=== PATIENT | male | born 1980 ===

== ENCOUNTER 2025-02-11 01:22 | Inpatient (IN) | payer BC ==
[2025-02-11] VITALS (33 sets, daily range): BP systolic 108–160; BP diastolic 73–137
[~2025-02-11] VITALS: Ht 182.9 cm; Wt 140.6 kg
[2025-02-11 03:13] LABS: BASOPHILS ABSOLUTE AUTO 0.05 K/mm3 (0.00-0.23); BASOPHILS PERCENT AUTO 1 % (0-2); EOSINOPHILS ABSOLUTE AUTO 0.14 K/mm3 (0.00-0.68); EOSINOPHILS PERCENT AUTO 3 % (0-6); Hematocrit 39.5 % (37.0-53.0); Hemoglobin 13.5 g/dL (13.5-17.5); IMMATURE GRAN ABSOLUTE AUTO 0.01 K/mm3 (0.00-0.10); IMMATURE GRAN PERCENT AUTO 0 % (0-1); LYMPHOCYTES ABSOLUTE AUTO 0.96 K/mm3 (0.84-5.20); LYMPHOCYTES PERCENT AUTO 22 % (21-46); MONOCYTES ABSOLUTE AUTO 0.42 K/mm3 (0.16-1.47); MONOCYTES PERCENT AUTO 10 % (4-13); Mean Corpuscular HGB Conc 34.2 g/dL (31.5-36.5); Mean Corpuscular Volume 100 fL (80-100); NEUTROPHILS ABSOLUTE AUTO 2.81 K/mm3 (1.96-9.15); NEUTROPHILS PERCENT AUTO 64 % (41-73); NRBC ABSOLUTE 0.00 K/mm3 (0.00-0.02); NRBC Auto 0.0 /100 WBC (0.0-0.2); Platelet Count 76 K/mm3 (150-400); RDW Coefficient Variation 13.8 % (11.7-14.2); RDW Standard Deviation 51.8 fL (35.1-46.3)
[2025-02-11 03:34] LABS: Alanine Aminotransfer (ALT/SGP 37 U/L (12-78); Albumin, Blood 2.8 g/dL (3.4-5.0); Albumin/Globulin Ratio 0.6 (0.8-1.8); Anion Gap 10 mmol/L (3-11); Aspartate Aminotrans (AST/SGOT 111 U/L (12-37); Bilirubin, Total 6.7 mg/dL (0.1-1.0); Blood Urea Nitrogen 14 mg/dL (8-24); CO2, Blood 28 mmol/L (21-32); Calcium, Blood 8.8 mg/dL (8.5-10.1); Chloride, Blood 101 mmol/L (98-108); Creatinine, Blood 0.80 mg/dL (0.60-1.20); Ethanol (Alcohol), Blood, Med <3 mg/dL; Globulin, Blood 4.6 g/dL (2.2-4.0); Glucose, Blood 134 mg/dL (70-99); Magnesium, Blood 1.3 mg/dL (1.6-2.4); Phosphorus, Blood 2.8 mg/dL (2.5-4.9); Potassium, Blood 3.6 mmol/L (3.5-5.5); Sodium, Blood 135 mmol/L (136-145); Total Protein, Blood 7.4 g/dL (6.4-8.2)
[2025-02-11] MEDS ORDERED: Diazepam 5 MG / ML 2ML SYR IV ONE (03:40)
[2025-02-11] MEDS ORDERED: Magnesium Sulf 2 GM/Water 50ML 50 ML IV ONE (06:00)
[2025-02-11 06:17] LABS: Bilirubin, Direct 2.2 mg/dL (0.0-0.3); Bilirubin, Indirect 4.5 mg/dL (0.1-0.7)
[2025-02-11 06:22] LABS: Acetaminophen, Random <2.0 ug/mL (10.0-30.0)
[2025-02-11 06:39] LABS: Prothrombin Time Results 14.9 Sec (9.7-11.5)
[2025-02-11] MEDS ORDERED: NS 250 ML IV PRN (08:30)
--- NOTE | 2025-02-11 11:00 | NUR ---
ASSUMPTION OF CARE/ADMISSION TO ICU PT TO ICU AT APPROXIMATELY 0724 BY MADDI SOTO. PT ACCOMPANIED BY SECURITY. PT TRANSFERED TO ICU BED VIA SLIDER SHEET. PT BRIEFLY AWAKENS WITH PHYSICAL STIMULATION, MUMBLES INCOHERENTLY THEN FALLS BACK ASLEEP. ON ASSESSMENT PT OPENS EYES SPONTANEOUSLY, PT ORIENTED X4, ABLE TO STATE NAME, AND YEAR, UNSURE OF LOCATION. PT FOLLOWS DIRECTION WHEN PROMPTED, ABLE TO MAKE HIS NEEDS KNOWN. PT TREMULOUS, CIWA 5. PT DENIES PAIN AT TIME OF ASSESSMENT. HR 70-80'S SINUS, MAP >65. PT PLACED ON 4LPM VIA NC WHILE SLEEPING, OXYGEN SATURATION >94%. ABDOMEN ROUND AND SOFT, BOWEL TONES HYPOACTIVE. PT DENIES N/V. PT USES URINAL TO VOID. PIV IN PLACE TO LAC, POWERGLIDE PLACED TO CECILIA. BED IN LOWEST POSITON, CALL LIGHT WITHIN REACH, CARE CONTINUES.
[2025-02-11] MEDS ORDERED: Diazepam 5 MG / ML 2ML SYR IV PRN ×2 (11:10→11:15)
[2025-02-11] MEDS ORDERED: NICOTINE POLACRILEX 4 MG LOZENGE PO PRN (16:10)
--- NOTE | 2025-02-11 17:24 | NUR ---
SHIFT SUMMARY NO ACUTE CHANGES THIS SHIFT. PT UP IN RECLINER, ALERT AND ORIENTED X4. PT ANSWERS QUESTIONS APPROPRIATELY, FOLLOWS DIRECTION WHEN PROMPTED IS ABLE TO MAKE HIS NEEDS KNOWN. PT MOVES EXTREMITIES EQUALLY BILATERALLY, AMBULATES IN THE ROOM WITH MINIMAL ASSISTANCE. PT TREMULOUS. CIWA 5 THIS SHIFT, MEDICATED WITH LIBRIUM PER EMAR. HR 60-80'S SINUS, MAP >65. PT ON RA WHILE AWAKE, 4LPM VIA NC WHILE SLEEPING, OXYGEN SATURAITON >94%. ABDOMEN SOFT, BOWEL TONES ACTIVE THROUGHOUT, PT DENIES N/V. PT USES URINAL TO VOID. PIV IN PLACE TO LAC, POWERGLIDE IN PLACE TO CECILIA SL. CALL LIGHT WITHIN REACH, CARE CONTINUES.
--- NOTE | 2025-02-11 17:28 | NUR ---
PT BELONGINGS PT BELONGINGS BROUGHT TO ICU FROM [facility] BY [facility] RN. BELONGINGS IN ROOM WITH PT.
--- NOTE | 2025-02-11 20:24 | NUR ---
ASSUMPTION OF CARE CARE OF PT ASSUMED FOLLOWING BEDSIDE SHIFT REPORT FROM DAY RN. PT LYING IN BED IN NO APPARENT DISTRESS, ALERT AND ORIENTED, CIWA 11 FOR TREMORS, ANXIETY, VISUAL HALLUCINATIONS AND MILD DIAPHORESIS. PT GIVEN LIBRIUM. MAEW. PT TRANSFERRED TO BED WITH SBA. CHAIR ALARM IS ON. PT GIVEN NICONTINE LOZENGE. SINUS RHYTHM IN THE 80'S AND STABLE BP. RESPIRATIONS REGULAR, SYMMETRIC EXPANSION AND DIM IN BASES. DENIES CHEST PAIN/PRESSURE, SOB. ABDOMEN DISTENDED AND NON TENDER. DENIES N/V. WILL REVIEW AND CONTINUE PLAN OF CARE.
--- NOTE | 2025-02-11 21:39 | NUR ---
UPDATE: PT STANDS UP FROM CHAIR SAYING HE WANTS TO LEAVE. PT IS ALERT BUT NOT ORIENTED, OTHER THAN SELF. PT ASKS IF HE CAN LEAVE IF HE GETS A RIDE. PT TRIED CALLING A FRIEND, WILFRIDO, BUT THERE WAS NO ANSWER. PT PARENTS LIVE IN [place]. PROVIDER CALLED AND IS ON THE WAY TO SPEAK TO PT ABOUT POTENTIAL AMA. PT IS CURRENTLY SITTING IN CHAIR WITH TWO RN'S IN ROOM.
[2025-02-12] VITALS (20 sets, daily range): BP systolic 103–150; BP diastolic 68–109
[2025-02-12 06:14] LABS: BASOPHILS ABSOLUTE AUTO 0.04 K/mm3 (0.00-0.23); BASOPHILS PERCENT AUTO 1 % (0-2); EOSINOPHILS ABSOLUTE AUTO 0.17 K/mm3 (0.00-0.68); EOSINOPHILS PERCENT AUTO 4 % (0-6); Hematocrit 41.8 % (37.0-53.0); Hemoglobin 14.1 g/dL (13.5-17.5); IMMATURE GRAN ABSOLUTE AUTO 0.02 K/mm3 (0.00-0.10); IMMATURE GRAN PERCENT AUTO 1 % (0-1); LYMPHOCYTES ABSOLUTE AUTO 0.85 K/mm3 (0.84-5.20); LYMPHOCYTES PERCENT AUTO 20 % (21-46); MONOCYTES ABSOLUTE AUTO 0.43 K/mm3 (0.16-1.47); MONOCYTES PERCENT AUTO 10 % (4-13); Mean Corpuscular HGB Conc 33.7 g/dL (31.5-36.5); Mean Corpuscular Volume 101 fL (80-100); NEUTROPHILS ABSOLUTE AUTO 2.83 K/mm3 (1.96-9.15); NEUTROPHILS PERCENT AUTO 65 % (41-73); NRBC ABSOLUTE 0.00 K/mm3 (0.00-0.02); NRBC Auto 0.0 /100 WBC (0.0-0.2); Platelet Count 67 K/mm3 (150-400); RDW Coefficient Variation 13.8 % (11.7-14.2); RDW Standard Deviation 51.3 fL (35.1-46.3)
--- NOTE | 2025-02-12 06:19 | NUR ---
SHIFT SUMMARY PT LYING IN CHAIR SLEEPING, SEDATED ON PRECEDEX 1.0, DIFFICULT TO AROUSE. DURING SHIFT ETOH WITHDRAWALS ESCALATED QUICKLY IN SPITE OF LIBRIUM AND THEN VALIUM, AND THE PRECEDEX DRIP WAS STARTED AROUND 2300 LAST NIGHT. PT FINALLY WENT TO SLEEP AROUND 0100. CIWA SCORES BEFORE SLEEPING WERE 17, FOR TREMORS, VISUAL HALLUCINATIONS, MILD NAUSEA, ANXIETY, AGITATION AND DISORIENTATION. AT ONE POINT, BEFORE THE PRECEDEX WAS STARTED, PT WANTED TO LEAVE AMA AND DR KOHLER CAME TO SPEAK WITH PT AND CONVINCED HIM THAT IT WOULD BE IN HIS BEST INTEREST TO STAY. PT STAYED IN SINUS RHYTHM 60-90 BPM AND BP REMAINED STABLE. NO CHEST PAIN/PRESSURE OR SOB WHEN AWAKE. PT WAS STARTED ON 6L NC FOR APPARENT SLEEP APNEA. LUNGS CLEAR AND DIMINISHED. MILD NAUSEA DURING SHIFT BUT NO VOMITING. NO BM. PT VOIDED 40ML URINE BEFORE SLEEPING. HE WAS BLADDER SCANNED JUST BEFORE END OF SHIFT AND 492ML WAS THE RESULT. PT HAS NO H/O BPH OR RETENTION. ONLY INPUT WAS 300ML OF PRECEDEX AND A FEW SIPS FOR MEDS. BEDSIDE SHIFT REPORT GIVEN TO ONCOMING RN.
[2025-02-12 06:37] LABS: Alanine Aminotransfer (ALT/SGP 36.0 U/L (12-78); Albumin, Blood 3.0 g/dL (3.4-5.0); Albumin/Globulin Ratio 0.6 (0.8-1.8); Anion Gap 8.0 mmol/L (3-11); Aspartate Aminotrans (AST/SGOT 100.0 U/L (12-37); Bilirubin, Total 7.5 mg/dL (0.1-1.0); Blood Urea Nitrogen 15.0 mg/dL (8-24); CO2, Blood 30.0 mmol/L (21-32); Calcium, Blood 8.8 mg/dL (8.5-10.1); Chloride, Blood 100.0 mmol/L (98-108); Creatinine, Blood 0.55 mg/dL (0.60-1.20); Globulin, Blood 5.2 g/dL (2.2-4.0); Glucose, Blood 175.0 mg/dL (70-99); Potassium, Blood 4.1 mmol/L (3.5-5.5); Sodium, Blood 134.0 mmol/L (136-145); Total Protein, Blood 8.2 g/dL (6.4-8.2)
--- NOTE | 2025-02-12 10:09 | NUR ---
ASSUMPTION OF CARE ASSUMED CARE OF PATIENT AT [facility]. PT RESTING IN RECLINER, PRECEDEX INFUSING AT 1MCG/KG/HR. PT RASS -3, PRECEDEX TITRATED DOWN OT 0.7MCG/KG/HR. PT BRIEFLY WOKE UP TO PHYSICAL STIMULATION, FOLLOWED SOME COMMANDS SUCH WIGGLING TOES AND SQUEEZING HANDS, PT ALSO ABLE TO DRINK SOME WATER. PT QUICKLY FELL BACK ASLEEP. PT VERY DIFFICULT TO ARROUSE. DR. VALENCIA AT THE BEDSIDE, PT NOT AROUSABLE, PRECEDEX PLACED ON SB. HR 60'S SINUS, MAP >65. PT ON 6LPM VIA NC, OXYGEN SATURATION >95%. ABDOMEN ROUND AND FIRM, BOWEL TONES HYPOACTIVE. POWERGLIDE IN PLACE TO CECILIA, PIV IN PLACE TO LEFT HAND. CALL LIGHT WITHIN REACH, CARE CONTINUES.
[2025-02-12] MEDS ORDERED: Lidocaine 2% Jelly Uro-Jet UR ONE ×2 (11:00→12:50)
[2025-02-12] MEDS ORDERED: NS 1,000 ML IV SCH (13:40)
[2025-02-12] MEDS ORDERED: Enoxaparin 40 MG/0.4 ML SYR SC SCH (14:00)
[2025-02-12 14:12] LABS: U Amphetamine Screen Not Detected; U Barbituate Screen DETECTED; U Benzodiazapine Screen DETECTED; U Buprenorphine Screen Not Detected; U Cannabinoids Screen Not Detected; U Cocaine Screen Not Detected; U Methadone Screen Not Detected; U Methamphetamine Screen Not Detected; U Opiates Screen Not Detected; U Oxycodone Screen Not Detected; U Phencyclidine Screen Not Detected
--- NOTE | 2025-02-12 17:25 | NUR ---
SHIFT SUMMARY PT SLEEPING BUT AROUSABLE TO VERBAL STIMULI. PT ANSWERS QUESTIONS APPROPRIATELY, FOLLOWS DIRECTION WHEN PROMPTED AND IS ABLE TO MAKE HIS NEEDS KNOWN. PT CONFUSED AT TIMES, CIWA 8-13 THIS SHIFT, MEDICATED PER EMAR. PT MOVES EXTREMITIES EQUALLY BILATERALLY. HR 60'S SINUS, MAP >65. PT ON 4LPM VIA NC, OXYGEN SATURATION >94%. ABDOMEN FIRM, BOWEL TONES HYPOACTIVE. PT STRAIGHT CATH'D THIS SHIFT DUE TO RETENTION, PROVIDER AWARE. POWERGLIDE IN PLACE TO CECILIA, NS INFUSING AT 75MLS/HR. PIV IN PLACE TO LEFT HAND SL. BED IN LOWEST POSITION, CALL LIGHT WITHIN REACH, CARE CONTINUES.
--- NOTE | 2025-02-12 20:27 | NUR ---
ASSUMPTION OF CARE CARE OF PT ASSUMED FOLLOWING BEDSIDE SHIFT REPORT FROM DAY RN. PT SITTING UP IN BED, ALERT AND ORIENTED TO ALL. CIWA 5. PT MEDICATED WITH 50 LIBRIUM. PT UP TO TOILET WITH 2 SBA WITH SOME DIFFICULTY- UNSTEADY ON FEET. AFEBRILE. SINUS RHYTHM WITH STABLE BP. LUNGS CLEAR AND 4L NC PRODCUCING SAT > 92%. ABDOMEN DISTENDED AND FIRM. BM DURING ASSESSMENT (PT GIVEN LACTULOSE EARLIER TODAY). NO CHEST PAIN/PRESSURE, SOB, N/V, THOUGH PT DOES HAVE DECREASED APPETITE. WILL REVIEW AND CONTINUE PLAN OF CARE.
[2025-02-13] VITALS (9 sets, daily range): BP systolic 105–170; BP diastolic 81–134
--- NOTE | 2025-02-13 00:54 | NUR ---
UPDATE: PT WITHDRAWALS SYMPTOMS HAVE NOT ESCALATED LIKE LAST NIGHT. CIWA SCORES REMAIN LESS THAN 10. PT GIVEN 2 X 50MG LIBRIUM. PT BELIEVES WORST IS BEHIND HIM. PT STARTS INQUIRING ABOUT RESEDENTIAL TREATMENT FACILITIES. HE SAYS HIS INSURANCE ([facility]) REFUSES TO COVER ANY SUCH PLACE. PT C/O GAS LIKE AB PAIN. TREATED SUCCESSFULLY WITH SPRITE AND A SNACK.
[2025-02-13 04:40] LABS: BASOPHILS ABSOLUTE AUTO 0.06 K/mm3 (0.00-0.23); BASOPHILS PERCENT AUTO 1 % (0-2); EOSINOPHILS ABSOLUTE AUTO 0.11 K/mm3 (0.00-0.68); EOSINOPHILS PERCENT AUTO 3 % (0-6); Hematocrit 40.8 % (37.0-53.0); Hemoglobin 13.8 g/dL (13.5-17.5); IMMATURE GRAN ABSOLUTE AUTO 0.01 K/mm3 (0.00-0.10); IMMATURE GRAN PERCENT AUTO 0 % (0-1); LYMPHOCYTES ABSOLUTE AUTO 0.76 K/mm3 (0.84-5.20); LYMPHOCYTES PERCENT AUTO 18 % (21-46); MONOCYTES ABSOLUTE AUTO 0.50 K/mm3 (0.16-1.47); MONOCYTES PERCENT AUTO 12 % (4-13); Mean Corpuscular HGB Conc 33.8 g/dL (31.5-36.5); Mean Corpuscular Volume 101 fL (80-100); NEUTROPHILS ABSOLUTE AUTO 2.80 K/mm3 (1.96-9.15); NEUTROPHILS PERCENT AUTO 66 % (41-73); NRBC ABSOLUTE 0.00 K/mm3 (0.00-0.02); NRBC Auto 0.0 /100 WBC (0.0-0.2); Platelet Count 75 K/mm3 (150-400); RDW Coefficient Variation 13.5 % (11.7-14.2); RDW Standard Deviation 50.3 fL (35.1-46.3)
[2025-02-13 05:07] LABS: Alanine Aminotransfer (ALT/SGP 34.0 U/L (12-78); Albumin, Blood 2.7 g/dL (3.4-5.0); Albumin/Globulin Ratio 0.6 (0.8-1.8); Anion Gap 7.0 mmol/L (3-11); Aspartate Aminotrans (AST/SGOT 94.0 U/L (12-37); Bilirubin, Total 7.1 mg/dL (0.1-1.0); Blood Urea Nitrogen 14.0 mg/dL (8-24); CO2, Blood 31.0 mmol/L (21-32); Calcium, Blood 8.4 mg/dL (8.5-10.1); Chloride, Blood 99.0 mmol/L (98-108); Creatinine, Blood 0.69 mg/dL (0.60-1.20); Globulin, Blood 4.9 g/dL (2.2-4.0); Glucose, Blood 117.0 mg/dL (70-99); Potassium, Blood 3.7 mmol/L (3.5-5.5); Sodium, Blood 133.0 mmol/L (136-145); Total Protein, Blood 7.6 g/dL (6.4-8.2)
--- NOTE | 2025-02-13 07:36 | NUR ---
SHIFT SUMMARY PT LYING IN BED ALERT. PT WAS ORIENTED TO ALL MOST OF SHIFT. GIVEN 100MG OF LIBRIUM AND 5MG OF VALIUM FOR CIWAS OF 5-11. AT END OF SHIFT, PT INTRODUCED ME TO PARENTS, BUT NO ONE ELSE WAS IN THE ROOM. PT IS MOTIVATED TO QUIT DRINKING; WANTS TO DO IT FOR HIS CHILDREN AND HIS HEALTH. PT IN SINUS RHYTM WITH STABLE BP. NO CHEST PAIN/PRESSURE. NO SOB.RA WHEN AWAKE AND 6L NC WHEN SLEEPING FOR APPARENT SLEEP APNEA. I BM DURING SHIFT. I UNMEASURED VOID. PT HAS NOTED URINE HAS BECOME MUCH DARKER OF LATE. NS AT 75ML/HR. BEDSIDE SHIFT REPORT GIVEN TO ONCOMING DAY RN
[2025-02-14] VITALS (17 sets, daily range): BP systolic 110–170; BP diastolic 54–135
[2025-02-14 04:24] LABS: BASOPHILS ABSOLUTE AUTO 0.05 K/mm3 (0.00-0.23); BASOPHILS PERCENT AUTO 1 % (0-2); EOSINOPHILS ABSOLUTE AUTO 0.13 K/mm3 (0.00-0.68); EOSINOPHILS PERCENT AUTO 3 % (0-6); Hematocrit 37.8 % (37.0-53.0); Hemoglobin 12.8 g/dL (13.5-17.5); IMMATURE GRAN ABSOLUTE AUTO 0.02 K/mm3 (0.00-0.10); IMMATURE GRAN PERCENT AUTO 1 % (0-1); LYMPHOCYTES ABSOLUTE AUTO 0.90 K/mm3 (0.84-5.20); LYMPHOCYTES PERCENT AUTO 22 % (21-46); MONOCYTES ABSOLUTE AUTO 0.56 K/mm3 (0.16-1.47); MONOCYTES PERCENT AUTO 14 % (4-13); Mean Corpuscular HGB Conc 33.9 g/dL (31.5-36.5); Mean Corpuscular Volume 102 fL (80-100); NEUTROPHILS ABSOLUTE AUTO 2.49 K/mm3 (1.96-9.15); NEUTROPHILS PERCENT AUTO 60 % (41-73); NRBC ABSOLUTE 0.00 K/mm3 (0.00-0.02); NRBC Auto 0.0 /100 WBC (0.0-0.2); Platelet Count 89 K/mm3 (150-400); RDW Coefficient Variation 14.1 % (11.7-14.2); RDW Standard Deviation 53.1 fL (35.1-46.3)
[2025-02-14 04:43] LABS: Alanine Aminotransfer (ALT/SGP 31.0 U/L (12-78); Albumin, Blood 2.4 g/dL (3.4-5.0); Albumin/Globulin Ratio 0.5 (0.8-1.8); Anion Gap 6.0 mmol/L (3-11); Aspartate Aminotrans (AST/SGOT 84.0 U/L (12-37); Bilirubin, Total 6.8 mg/dL (0.1-1.0); Blood Urea Nitrogen 10.0 mg/dL (8-24); CO2, Blood 29.0 mmol/L (21-32); Calcium, Blood 8.0 mg/dL (8.5-10.1); Chloride, Blood 104.0 mmol/L (98-108); Creatinine, Blood 0.58 mg/dL (0.60-1.20); Globulin, Blood 4.7 g/dL (2.2-4.0); Glucose, Blood 138.0 mg/dL (70-99); Potassium, Blood 3.3 mmol/L (3.5-5.5); Sodium, Blood 136.0 mmol/L (136-145); Total Protein, Blood 7.1 g/dL (6.4-8.2)
--- NOTE | 2025-02-14 05:01 | NUR ---
SHIFT SUMMARY PT WAS RESTARTED ON PRECEDEX THIS SHIFT R/T INCREASING CIWA SCORES. PT STARTED OFF AT AN 8 AND WAS MEDICATED W/ LIBRIUM AND VALIUM W/ NO POSITIVE CHANGE. PT BEGAN HAVING AUDITORY AND VISUAL HALLUCINATIONS, BECAME VERY ANXIOUS, STARTED PULLING AT CORDS. PRECEDEX IS INFUSING AT 0.6 MCG/KG/HR WITH A RASS OF -2. AWAKENS TO VERBAL STIMULI. ON 4L NC WHILE ASLEEP, HUMIDIFIER HOOKED UP R/T SOME BLEEDING IN THE NARES. BREATH SOUNDS CLEAR AND DIM IN THE BASES. HR 70'S, BP STABLE. PUREWICK PLACED WHEN PRECEDEX WAS STARTED. NO BM THIS SHIFT. NO OTHER ACUTE EVENTS.
[2025-02-14 11:04] LABS: HEPATITIS A ANTIBODY, IGM Negative (Negative); HEPATITIS C AB CIA INTERP Negative (Negative); HEPATITIS C ANTIBODY CIA INDEX 0.05 IV
[2025-02-15] VITALS (12 sets, daily range): BP systolic 118–174; BP diastolic 67–108
[2025-02-15 03:33] LABS: Alanine Aminotransfer (ALT/SGP 34.0 U/L (12-78); Albumin, Blood 2.5 g/dL (3.4-5.0); Albumin/Globulin Ratio 0.5 (0.8-1.8); Anion Gap 7.0 mmol/L (3-11); Aspartate Aminotrans (AST/SGOT 88.0 U/L (12-37); Bilirubin, Total 6.9 mg/dL (0.1-1.0); Blood Urea Nitrogen 7.0 mg/dL (8-24); CO2, Blood 28.0 mmol/L (21-32); Calcium, Blood 8.1 mg/dL (8.5-10.1); Chloride, Blood 105.0 mmol/L (98-108); Creatinine, Blood 0.58 mg/dL (0.60-1.20); Globulin, Blood 4.7 g/dL (2.2-4.0); Glucose, Blood 112.0 mg/dL (70-99); Potassium, Blood 3.6 mmol/L (3.5-5.5); Sodium, Blood 136.0 mmol/L (136-145); Total Protein, Blood 7.2 g/dL (6.4-8.2)
--- NOTE | 2025-02-15 05:04 | NUR ---
SHIFT SUMMARY PT A/OX4, ABLE TO MAKE NEEDS KNOWN, USES CALL LIGHT APPROPRIATLY. 0400 CIWA WAS 4, SLIGHTLY DIAPHORETIC AND UNSURE OF EXACT DATE. NOT TREMULOUS. PT ON 4L NC, SATS > 92%. HR 90-100'S, BP STABLE. PT HAD ONE LARGE BM THIS SHIFT, AND TWO VOIDS- ONE UNMEASURED. PT SOMETIMES NEEDS TO BE ASKED OR ENCOURAGED TO URINATE. HE IS MORE STEADY ON HIS FEET T/O SHIFT, ABLE TO USE FWW AND SBA TO TOILET FROM BED. PT DID ATTEMPT OOB ONCE WITHOUT CALLING, BED ALARM ON WITH CALL LIGHT IN REACH. NO FURTHER ISSUES AFTER ENCOURAGEMENT PROVIDED TO USE CALL LIGHT. PT TOLERATING PO INTAKE. PT TOOK NAPS T/O THE NIGHT, STATES THIS IS NORMAL FOR HIM. NS INFUSING TO PG AT 75ML/H. PT WAS VERY PLEASANT T/O THE NIGHT, JOKING WITH STAFF, ETC. NO ACUTE EVENTS.
--- NOTE | 2025-02-15 10:15 | NUR ---
AM NOTE: THIS RN ASSUMED CARE OF PT AT APPROX 0700, REPORT FROM NOC RN. PT A/OX4, ABLE TO COMMUNICATE NEEDS W/ STAFF. CIWA 4. VSS. HR 100'S, SINUS TACH ON MONITOR. SBP UP TO 170'S, PT REPORTS FEELING "VERY ANGRY" DUE TO SOME MALFUNCTIONS WITH HIS CELL PHONE. DENIES CHEST PAIN/PRESSURE. SPO2 >90% ON ROOM AIR, RESPIRATIONS EVEN & UNLABORED. AFEBRILE. UP TO TOILET FOR BM W/ NURSE ASSIST. TREMULOUS, ABLE TO USE FWW FOR AMBULATION. ORDERS RECEIVED FOR PT EVAL TODAY. PT DENIES PAIN. MEDICAL STATUS THIS AM, DISCONTINUE TELEMETRY. PLANS TO TRANSFER TO ROOM [facility] SHORTLY.
--- NOTE | 2025-02-15 17:24 | NUR ---
SUMMARY PT TRANSFERRED FROM ICU 10 HOME NICOTINE LOZENGES SENT UP WITH PATIENT AND PALCED IN DRAWER. CIWA ASSESSED AND WNL. PT HAS NS RUNNING IN POWERGLIDE TO CECILIA. PT CALM AND COOPERATIVE, WITHDRAWN. B/P IN ICU WAS ELEVATED IN 170'S SYSTOLICALLY WITH NO RECENT RECHECK. PT BLOOD PRESSURE TAKEN NOT LONG AFTER ARRIVAL TO UNIT AND WAS SYSTOLICALLY IN THE 150'S AND DIASTOLIC IN THE LOW 100'S WITH HEART RATE IN LOW 100'S DR. VALENCIA NOTIFIED AND SHE ORDERED 6.25 MG CARVEDILOL TO START AT THAT TIME THEN BID. PT SEEMS CONFUSED UPON WAKING FROM NAP THIS EVENING. CIWA RE-ASSESSED AND SCORE OF 8. 25 MG LIBRIUM GIVEN. PT HAD BITTEN THROUGH IV TUBING TO "FREE HIMSELF" TO SIT AT EOB IN ORDER TO USE BATHROOM. IV TUBING AND BAG REPLACED. PT WAS OFFERED ASSISTANCE TO BATHROOM BUT DENIED HAVING TO GO ANYMORE. PT IS NOW RESTING IN BED, EYES CLOSED, RESPIRATIONS EVEN AND UNLABORED. WITH BED ALARM ON FOR FORGETFULNESS/IMPULSIVITY. PT WAS UP IN CHAIR TODAY BRIEFLY WITH CAIR ALARM.
[2025-02-16 02:50] VITALS: BP 169/97
[2025-02-16 03:41] VITALS: BP 166/98
--- NOTE | 2025-02-16 04:13 | NUR ---
SHIFT SUMMARY PATIENT IS ALERT AND ORIENTED X2. PATIENT HAS HAD NO ACUTE EVENTS THIS SHIFT. VITAL SIGNS REVIEWED. PATIENTS CIWA RANGING FROM 8-12. PATIENT MEDICATED ACCORDINGLY. PATIENT BP HAS BEEN ELEVATED. PATIENT CONFUSED AND TRYING TO GET OUT OF BED, EASILY REDIRECTABLE. PATIENT HAS NO COMPLAINTS OF PAIN, NAUSEA, SOB OR VOMITTING. BED IN LOCKED AND LOWEST POSITION. BED ALARM IS ON. CALL LIGHT IN PLACE.
[2025-02-16 07:09] VITALS: BP 164/99
[2025-02-16 07:53] LABS: BASOPHILS ABSOLUTE AUTO 0.07 K/mm3 (0.00-0.23); BASOPHILS PERCENT AUTO 1 % (0-2); EOSINOPHILS ABSOLUTE AUTO 0.13 K/mm3 (0.00-0.68); EOSINOPHILS PERCENT AUTO 3 % (0-6); Hematocrit 40.9 % (37.0-53.0); Hemoglobin 13.8 g/dL (13.5-17.5); IMMATURE GRAN ABSOLUTE AUTO 0.03 K/mm3 (0.00-0.10); IMMATURE GRAN PERCENT AUTO 1 % (0-1); LYMPHOCYTES ABSOLUTE AUTO 0.78 K/mm3 (0.84-5.20); LYMPHOCYTES PERCENT AUTO 15 % (21-46); MONOCYTES ABSOLUTE AUTO 0.66 K/mm3 (0.16-1.47); MONOCYTES PERCENT AUTO 13 % (4-13); Mean Corpuscular HGB Conc 33.7 g/dL (31.5-36.5); Mean Corpuscular Volume 102 fL (80-100); NEUTROPHILS ABSOLUTE AUTO 3.59 K/mm3 (1.96-9.15); NEUTROPHILS PERCENT AUTO 68 % (41-73); NRBC ABSOLUTE 0.00 K/mm3 (0.00-0.02); NRBC Auto 0.0 /100 WBC (0.0-0.2); Platelet Count 115 K/mm3 (150-400); RDW Coefficient Variation 13.8 % (11.7-14.2); RDW Standard Deviation 52.3 fL (35.1-46.3)
[2025-02-16 08:09] LABS: Alanine Aminotransfer (ALT/SGP 34.0 U/L (12-78); Albumin, Blood 2.7 g/dL (3.4-5.0); Albumin/Globulin Ratio 0.5 (0.8-1.8); Anion Gap 9.0 mmol/L (3-11); Aspartate Aminotrans (AST/SGOT 81.0 U/L (12-37); Bilirubin, Total 7.3 mg/dL (0.1-1.0); Blood Urea Nitrogen 6.0 mg/dL (8-24); CO2, Blood 29.0 mmol/L (21-32); Calcium, Blood 8.5 mg/dL (8.5-10.1); Chloride, Blood 103.0 mmol/L (98-108); Creatinine, Blood 0.47 mg/dL (0.60-1.20); Globulin, Blood 5.1 g/dL (2.2-4.0); Glucose, Blood 117.0 mg/dL (70-99); Potassium, Blood 3.5 mmol/L (3.5-5.5); Sodium, Blood 137.0 mmol/L (136-145); Total Protein, Blood 7.8 g/dL (6.4-8.2)
[2025-02-16 15:29] VITALS: BP 146/81
[2025-02-16 19:29] VITALS: BP 136/81
--- NOTE | 2025-02-16 19:52 | NUR ---
SUMMARY PT MORE CONFUSED OVERNIGHT PER CHANNEL WORKER RN. NOTIFIED DR. VALENCIA OF PRN'S NEEDED TO MANAGE SYMPTOMS. LABS ORDERED AND AMMONIA. AMMONIA LEVELS INCREASED. DR. VALENCIA INCREASED LACTULOSE TO TID FROM BID. PATIENT HAD 4 BM'S THIS SHIFT. IMPULSIVE, BED ALARM AND CHAIR ALARM SET WHEN IN EACH. PARENTS CAME TO VISIT AND GOT A N UPDATED CELL AND HOME PHONE AND PLACED SOLO'S NUMBER (MOM) ON FRONT OF CHART, GAVE UPDATED NUMBERS TO [facility] TOOL FILER HAND.
[2025-02-17 03:02] VITALS: BP 151/91
--- NOTE | 2025-02-17 03:31 | NUR ---
SHIFT SUMMARY PATIENT HAS SLEPT INTERMITTANTLY TONIGHT. HE IS UP IN HIS RECLINER AT THIS TIME. HE JUST WOKE UP. PATIENT IS ORIENTED X2. CHAIR ALARM IS IN PLACE. PATIENT IS IMPULSIVE. HE DENIES PAIN. CALL LIGHT IS WITHIN REACH. SAFETY PRECAUTIONS ARE BEING MAINTAINED. NS IS INFUSING WITHOUT COMPLICATIONS.
[2025-02-17 06:41] LABS: BASOPHILS ABSOLUTE AUTO 0.07 K/mm3 (0.00-0.23); BASOPHILS PERCENT AUTO 1 % (0-2); EOSINOPHILS ABSOLUTE AUTO 0.16 K/mm3 (0.00-0.68); EOSINOPHILS PERCENT AUTO 3 % (0-6); Hematocrit 40.9 % (37.0-53.0); Hemoglobin 13.4 g/dL (13.5-17.5); IMMATURE GRAN ABSOLUTE AUTO 0.02 K/mm3 (0.00-0.10); IMMATURE GRAN PERCENT AUTO 0 % (0-1); LYMPHOCYTES ABSOLUTE AUTO 1.03 K/mm3 (0.84-5.20); LYMPHOCYTES PERCENT AUTO 19 % (21-46); MONOCYTES ABSOLUTE AUTO 0.89 K/mm3 (0.16-1.47); MONOCYTES PERCENT AUTO 16 % (4-13); Mean Corpuscular HGB Conc 32.8 g/dL (31.5-36.5); Mean Corpuscular Volume 104 fL (80-100); NEUTROPHILS ABSOLUTE AUTO 3.33 K/mm3 (1.96-9.15); NEUTROPHILS PERCENT AUTO 61 % (41-73); NRBC ABSOLUTE 0.00 K/mm3 (0.00-0.02); NRBC Auto 0.0 /100 WBC (0.0-0.2); Platelet Count 135 K/mm3 (150-400); RDW Coefficient Variation 14.0 % (11.7-14.2); RDW Standard Deviation 54.8 fL (35.1-46.3)
[2025-02-17 07:08] LABS: Anion Gap 7.0 mmol/L (3-11); Blood Urea Nitrogen 8.0 mg/dL (8-24); CO2, Blood 31.0 mmol/L (21-32); Calcium, Blood 8.7 mg/dL (8.5-10.1); Chloride, Blood 104.0 mmol/L (98-108); Creatinine, Blood 0.57 mg/dL (0.60-1.20); Glucose, Blood 106.0 mg/dL (70-99); Potassium, Blood 3.3 mmol/L (3.5-5.5); Sodium, Blood 139.0 mmol/L (136-145)
[2025-02-17 07:17] VITALS: BP 129/76
[2025-02-17] MEDS ORDERED: Potassium Chl 20MEQ/Water100ML 100 ML IV SCH (08:10)
[2025-02-17 15:47] VITALS: BP 137/82
--- NOTE | 2025-02-17 18:00 | NUR ---
SHIFT SUMMARY PATIENT ALERT AND INTERACTIVE. SPEACH DIFFICULT TO UNDERSTAND AT TIMES. PATIENT UNABLE TO AMBULATE SAFELY INDEPENDENTLY BUT ATTEMPTS FREQUENTLY. SAFETY ALARMS IN USE. PATIENT CONFUSED AND HALLUCINATING AT TIMES. PATIENT MEDICATED WITH LIBRIUM FOR ELEVATED CIWAS. FAMILY IN TO SEE PATIENT. PATIENT PULLED MULTIPLE IV'S OUT FOR VARIOUS REASONS. PATIENT NOT DRINKING MUCH FLUIDS OR EATING BECAUSE OF NO APPETITE AND STATES HE DOESNT DRINK MUCH BUT BEER.
[2025-02-17 20:01] VITALS: BP 135/75
[2025-02-18 02:20] VITALS: BP 143/85
--- NOTE | 2025-02-18 03:00 | NUR ---
SHIFT SUMMARY PATIENT SLEPT UNTIL ABOUT 0200 AND THEN GOT UP TO SIT IN HIS BEDSIDE CHAIR. HE IS CONFUSED AND THINKS HE IS IN HIS HOME. HIS VITAL SIGNS ARE STABLE AND HE IS BEING COOPERATIVE WITH CARE AT THIS TIME. CHAIR ALARM IS ON AND SAFETY PRECAUTIONS ARE BEING MAINTAINED.
[2025-02-18 07:50] VITALS: BP 130/69
[2025-02-18 15:15] VITALS: BP 145/81
--- NOTE | 2025-02-18 18:14 | NUR ---
SHIFT SUMMARY PATIENT ALERT AND INTERACTIVE WHEN AWAKE. CONTINUES TO HAVE AUDIBLE AND VISUAL HALLUCINATIONS. PATIENT MEDICATED WITH LIBRIUM NEEDED. PATIENT DRINKING LACTULOSE ORDERED. NO BM TODAY. NO LABS ORDERED TODAY. PATIENT CONTINUES TO HAVE TREMORS AND DIFFICULTY WITH FINE MOTOR SKILLS. PATIENT AMBULATED TO WITH WALKER, GAIT BELT, AND MODERATE ASSIST. PATIENT TENDS TO DRAG FEET AND HAVE ISSUES WITH BALANCE. PT WORKED WITH PATIENT TODAY. PATIENT CONTINUES TO HAVE POOR APPETITE AND POOR PO INTAKE. IV FLUIDS DC'D. PATIENT VOIDING KEENAN/TEA COLORED URINE.
[2025-02-18 19:14] VITALS: BP 139/79
--- NOTE | 2025-02-19 03:04 | NUR ---
COMMUNITY RESOURCE CONSULTANT SUMMARY VSS. CONTINUES TO POST WITHDRAW FROM ETOH. VERBAL RESEPONSE SLOW, OCCASIONALLY DEFIANT AND EASILY AGITATED, VERBAL STATEMENTS OF HEARING THINGS OUTSIDE OF HIS ROOM, BUT NO NOTED THINGS HE VOICED WERE OBSERVED. PO LIBRIUM ADMINISTERED PER MD ORDERS FOR S/S WITHDRAWLS, SEE MAR FOR DETAILS. UP WITH GAIT BELT AND WALKER WITH ASSIST HE IS VERY UNSTEADY IN AMBULATION. INTERMITTENT SLEEPING AND EPISODES OF AWAKENINGS THROUGHOUT NIGHT. UP TO BATHROOM TO VOID AND HAVE BM. AROUND 0300 AM, DEMANDED TO GET UP AND SIT IN CHAIR AT BEDSIDE. CALL LIGHT IN REACH, CHAIR ALARM ON FOR SAFETY. WILL CONTINUE TO MONITOR/ASSESS.
[2025-02-19 04:27] VITALS: BP 141/74
[2025-02-19 06:07] LABS: BASOPHILS ABSOLUTE AUTO 0.08 K/mm3 (0.00-0.23); BASOPHILS PERCENT AUTO 2 % (0-2); EOSINOPHILS ABSOLUTE AUTO 0.15 K/mm3 (0.00-0.68); EOSINOPHILS PERCENT AUTO 3 % (0-6); Hematocrit 38.4 % (37.0-53.0); Hemoglobin 12.7 g/dL (13.5-17.5); IMMATURE GRAN ABSOLUTE AUTO 0.01 K/mm3 (0.00-0.10); IMMATURE GRAN PERCENT AUTO 0 % (0-1); LYMPHOCYTES ABSOLUTE AUTO 1.34 K/mm3 (0.84-5.20); LYMPHOCYTES PERCENT AUTO 26 % (21-46); MONOCYTES ABSOLUTE AUTO 0.70 K/mm3 (0.16-1.47); MONOCYTES PERCENT AUTO 14 % (4-13); Mean Corpuscular HGB Conc 33.1 g/dL (31.5-36.5); Mean Corpuscular Volume 104 fL (80-100); NEUTROPHILS ABSOLUTE AUTO 2.86 K/mm3 (1.96-9.15); NEUTROPHILS PERCENT AUTO 56 % (41-73); NRBC ABSOLUTE 0.00 K/mm3 (0.00-0.02); NRBC Auto 0.0 /100 WBC (0.0-0.2); Platelet Count 174 K/mm3 (150-400); RDW Coefficient Variation 14.1 % (11.7-14.2); RDW Standard Deviation 54.4 fL (35.1-46.3)
[2025-02-19 06:40] LABS: Alanine Aminotransfer (ALT/SGP 30.0 U/L (12-78); Albumin, Blood 2.4 g/dL (3.4-5.0); Albumin/Globulin Ratio 0.5 (0.8-1.8); Anion Gap 7.0 mmol/L (3-11); Aspartate Aminotrans (AST/SGOT 72.0 U/L (12-37); Bilirubin, Total 4.5 mg/dL (0.1-1.0); Blood Urea Nitrogen 9.0 mg/dL (8-24); CO2, Blood 30.0 mmol/L (21-32); Calcium, Blood 8.5 mg/dL (8.5-10.1); Chloride, Blood 105.0 mmol/L (98-108); Creatinine, Blood 0.59 mg/dL (0.60-1.20); Globulin, Blood 4.6 g/dL (2.2-4.0); Glucose, Blood 109.0 mg/dL (70-99); Potassium, Blood 3.1 mmol/L (3.5-5.5); Sodium, Blood 139.0 mmol/L (136-145); Total Protein, Blood 7.0 g/dL (6.4-8.2)
[2025-02-19 07:54] VITALS: BP 141/84
[2025-02-19] MEDS ORDERED: Folic Acid 1 MG TAB PO SCH (09:00)
[2025-02-19] MEDS ORDERED: Potassium Chloride 10 Meq Tablet SA PO ONE (11:50)
[2025-02-19 15:32] VITALS: BP 137/77
--- NOTE | 2025-02-19 18:09 | NUR ---
PATIENT TRYING TO GET UP WITH OUT CALL LIGHT MULTIPLE MULTIPLE TIMES TODAY. SOMETIMES HE IS ALERT X4 AND SHORTLY AFTER IS CONFUSED ABOUT LOCATION AND SITUATION AND IS TRYING TO LEAVE. HE IS VERY UNSTADY WITH 2 ASSIST AND WALKER AND IS A HIGH FALL RISK. IS NOT DRINKING FLUIDS AND HAS NOT EATEN ALL DAY UNTIL DINNER HE HAS A FEW BITES AND A CHEESE STICK. IS COOPERATIVE WITH TAKING MEDS. PRNS GIVEN WHEN BEHAVIOR INDICATES. SOMEWHAT EFFECTIVE.
[2025-02-19 19:34] VITALS: BP 140/81
--- NOTE | 2025-02-20 03:28 | NUR ---
PICTURE ENGRAVER SUMMARY VSS. CONTINUES ON Q 4 HR ALCOHOL WITHDRAWL CHECKS. BEHAVIOR MORE DEFIANT AND AGITATED THIS SHIFT THAN NOTED 24 HR AGO. CONTINUES TO VOICE THAT HE IS IN HIS HOME, WANTING US STAFF TO GET OUT OF HIS "HOME". INTERMITTENT REDIRECTION AND EMPHASIS ON HIS SAFETY GIVEN. WAS DEFIANT AT ONE POINT, DEMANDING TO AMBULATE TO THE AREA HIS "CANDY DRAWER", AND TO "SEE THE STAIRS". RECEIVING PO LIBRIUM FOR SYMPTOMS. SEE MAR FOR DETAILS. WAS ASSISTED TO BATHROOM FOR BM AND TO VOID. VERY UNSTEADY, USING WALKER AND BELT GAIT. OTHERWISE, HAS BEEN RESTING INTERMITTENTLY IN BED WITH RAILS UP ON SIDE HE ATTEMPTS FO GET OOB ON AND BED ALARM ON WITH CALL LIGHT IN REACH, AND BED IN LOW POSITION FOR SAFETY. CURRENTLY RESTING QUIETLY WITH HOB AT 30% FOR COMFORT. WILL CONTINUE TO MONITOR.
[2025-02-20 06:40] VITALS: BP 149/88
[2025-02-20 07:27] VITALS: BP 149/92
[2025-02-20 09:04] LABS: BASOPHILS ABSOLUTE AUTO 0.08 K/mm3 (0.00-0.23); BASOPHILS PERCENT AUTO 2 % (0-2); EOSINOPHILS ABSOLUTE AUTO 0.15 K/mm3 (0.00-0.68); EOSINOPHILS PERCENT AUTO 3 % (0-6); Hematocrit 40.4 % (37.0-53.0); Hemoglobin 13.2 g/dL (13.5-17.5); IMMATURE GRAN ABSOLUTE AUTO 0.01 K/mm3 (0.00-0.10); IMMATURE GRAN PERCENT AUTO 0 % (0-1); LYMPHOCYTES ABSOLUTE AUTO 0.94 K/mm3 (0.84-5.20); LYMPHOCYTES PERCENT AUTO 21 % (21-46); MONOCYTES ABSOLUTE AUTO 0.52 K/mm3 (0.16-1.47); MONOCYTES PERCENT AUTO 12 % (4-13); Mean Corpuscular HGB Conc 32.7 g/dL (31.5-36.5); Mean Corpuscular Volume 104 fL (80-100); NEUTROPHILS ABSOLUTE AUTO 2.78 K/mm3 (1.96-9.15); NEUTROPHILS PERCENT AUTO 62 % (41-73); NRBC ABSOLUTE 0.00 K/mm3 (0.00-0.02); NRBC Auto 0.0 /100 WBC (0.0-0.2); Platelet Count 182 K/mm3 (150-400); RDW Coefficient Variation 14.1 % (11.7-14.2); RDW Standard Deviation 54.2 fL (35.1-46.3)
[2025-02-20 09:26] LABS: Anion Gap 8.0 mmol/L (3-11); Blood Urea Nitrogen 8.0 mg/dL (8-24); CO2, Blood 30.0 mmol/L (21-32); Calcium, Blood 8.7 mg/dL (8.5-10.1); Chloride, Blood 107.0 mmol/L (98-108); Creatinine, Blood 0.59 mg/dL (0.60-1.20); Glucose, Blood 129.0 mg/dL (70-99); Potassium, Blood 3.5 mmol/L (3.5-5.5); Sodium, Blood 141.0 mmol/L (136-145)
[2025-02-20 14:52] VITALS: BP 132/78
--- NOTE | 2025-02-20 18:24 | NUR ---
PATIENT A/OX3-4 MOST OF SHIFT, ABOUT 1400 PATIENT BECAME INCREASINGLY MORE AGITATED, CALLED 911, WAS CUSSING AT STAFF, CHAIR EXITING AND BECOMING INCREASINGLY MORE UNDIRECTABLE. WAS GIVEN ONE DOSE OF LIBIRIUM WITH GOOD EFFECT.
[2025-02-20 19:49] VITALS: BP 154/86
[2025-02-21 07:20] VITALS: BP 123/76
--- NOTE | 2025-02-21 08:40 | NUR ---
MOLDING ASSOCIATE SUMMARY PT IS A&OX3, VSS. PT WAS EXTREMELY COOPERATIVE THIS SHIFT. TRIED TO LEAVE HOSPITAL MULTIPLE TIMES WHEN AWAKE. 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 HOWEVER, IS REDIRECTABLE MOST OF THE TIME. UNDERSTANDS RN EDUCATION ON IMPORTANCE OF RECOVERY FROM ALCOHOL WITHDRAWAL, MEDICATION ADHERANCE, AND RECOVERY FROM ALCOHOL ABUSE. LIBRIUM GIVEN 1X. PT SLEPT THROUGH MOST OF THE SHIFT AFTER THAT. CHEST RISE AND RESPIRATIONS NOTED. BED RAILS UP X 2, BED IN LOWEST POSITION, BED WHEELS LOCKED, BED ALARM ON, PERSONAL BELONGINGS AND CALL LIGHT WITHIN REACH FOR SAFETY.
[2025-02-21 16:57] VITALS: BP 133/86
--- NOTE | 2025-02-21 17:18 | NUR ---
SHIFT SUMMARY NO ACUTE CHANGES. PT A/Ox2-3 - VARIES T/O DAY. PT DID BECOME MORE CONFUSED, AGITATED, AND RESTLESS AROUND 1300 AND LIBRIUM ADMINISTERED FOR A CIWA OF 9. LACTULOSE ADMINISTERED PER ORDERS AND ONLY 1 SMALL LOOSE BM THIS SHIFT. PT DENIES PAIN. UP IN CHAIR FOR MEALS AND HAD A SHOWER TODAY. IV SALINE LOCKED. PT CURRENTLY RESTING PEACEFULLY IN HOSPITAL BED WITH BED IN LOWEST POSITION AND CALL LIGHT WITHIN REACH. BED ALARM ON FOR IMMPULSIVE BEHAVIORS.
[2025-02-21 19:40] VITALS: BP 133/82
[2025-02-22 04:38] VITALS: BP 129/85
--- NOTE | 2025-02-22 06:44 | NUR ---
Shift Summary Pt very weak and confused t/o the night. He woke up thinking he was on a boat and frequently called out for his kids despite many attempts at re-orientation. Medicated with Librium as ordered which seemed to calm him down but did not help his delirium. This AM he states he was seeing dogs and cats in his room. Pt is 1 assist w/ fww and GB, he is very unsteady on his feet. He spoke about leaving several times to see his kids but never attempted to do so. He frequently moved from his bed to his chair. This AM is he calmly laying in bed trying to sleep.
[2025-02-22 07:24] VITALS: BP 144/85
--- NOTE | 2025-02-22 16:12 | NUR ---
SHIFT SUMMARY NO ACUTE CHANGES. VITALS STABLE, ON RA, DENIES PAIN. CONTINUES TO HAVE CONFUSION AND WANTING TO LEAVE FACILITY. BELIEVES HIS KIDS AND PARENTS ARE PRESENT WHEN THEY ARE NOT. LAB FOR AMMONIA LEVELS COMPLETED - REMAINS ELEVATED AND CONTINUES ON LACTULOSE WITH MINIMAL BM. PROVIDER AWARE OF LACK OF BM AND CONTINUED DELIRIUM. PT SLEEPING MAJORITY OF DAY DUE TO LACK OF SLEEP PRIOR NIGHT. UNSTEADY ON FEET TODAY - 2 PERSON ASSIST WITH FWW AND GB FOR ALL DISTANCES. FULL CODE. PT SLEEPING PEACEFULLY IN HOSPITAL BED WITH BED IN LOWEST POSITION AND CALL LIGHT WITHIN REACH, BED ALARM ON. PT DOES REMAIN COOPERATIVE WITH CARE BUT HAVING DIFFICULTY FOLLOWING COMMANDS.
[2025-02-22 19:24] VITALS: BP 137/85
[2025-02-23 03:46] VITALS: BP 121/65
[2025-02-23 05:58] LABS: BASOPHILS ABSOLUTE AUTO 0.10 K/mm3 (0.00-0.23); BASOPHILS PERCENT AUTO 2 % (0-2); EOSINOPHILS ABSOLUTE AUTO 0.18 K/mm3 (0.00-0.68); EOSINOPHILS PERCENT AUTO 3 % (0-6); Hematocrit 38.0 % (37.0-53.0); Hemoglobin 12.6 g/dL (13.5-17.5); IMMATURE GRAN ABSOLUTE AUTO 0.01 K/mm3 (0.00-0.10); IMMATURE GRAN PERCENT AUTO 0 % (0-1); LYMPHOCYTES ABSOLUTE AUTO 1.18 K/mm3 (0.84-5.20); LYMPHOCYTES PERCENT AUTO 22 % (21-46); MONOCYTES ABSOLUTE AUTO 0.52 K/mm3 (0.16-1.47); MONOCYTES PERCENT AUTO 10 % (4-13); Mean Corpuscular HGB Conc 33.2 g/dL (31.5-36.5); Mean Corpuscular Volume 103 fL (80-100); NEUTROPHILS ABSOLUTE AUTO 3.49 K/mm3 (1.96-9.15); NEUTROPHILS PERCENT AUTO 64 % (41-73); NRBC ABSOLUTE 0.00 K/mm3 (0.00-0.02); NRBC Auto 0.0 /100 WBC (0.0-0.2); Platelet Count 191 K/mm3 (150-400); RDW Coefficient Variation 14.1 % (11.7-14.2); RDW Standard Deviation 53.7 fL (35.1-46.3)
--- NOTE | 2025-02-23 06:14 | NUR ---
Shift Summary Pt still confused and impulsive, forgetting place and situation. He got OOB multiple times, he is weak and unsteady on his feet but he is able to ambulate with a FWW. He had one large loose BM around 0000. Pt is calm and semi-cooperative as well as slow moving. No librium givin this shift, his only CIWA like symptoms are mild tremors and AMS. No c/o of pain or nausea. Pt frequently talks of wanting to go home and briefly tried to figure out how to call a cab but was unable to. Educated on the importance of treatment and rehab once stable.
[2025-02-23 06:18] LABS: Alanine Aminotransfer (ALT/SGP 30.0 U/L (12-78); Albumin, Blood 2.3 g/dL (3.4-5.0); Albumin/Globulin Ratio 0.5 (0.8-1.8); Anion Gap 7.0 mmol/L (3-11); Aspartate Aminotrans (AST/SGOT 84.0 U/L (12-37); Bilirubin, Total 3.5 mg/dL (0.1-1.0); Blood Urea Nitrogen 9.0 mg/dL (8-24); CO2, Blood 31.0 mmol/L (21-32); Calcium, Blood 8.5 mg/dL (8.5-10.1); Chloride, Blood 104.0 mmol/L (98-108); Creatinine, Blood 0.64 mg/dL (0.60-1.20); Globulin, Blood 4.3 g/dL (2.2-4.0); Glucose, Blood 126.0 mg/dL (70-99); Potassium, Blood 2.9 mmol/L (3.5-5.5); Sodium, Blood 139.0 mmol/L (136-145); Total Protein, Blood 6.6 g/dL (6.4-8.2)
[2025-02-23 07:30] VITALS: BP 117/59
[2025-02-23] MEDS ORDERED: Potassium Chloride 10 Meq Tablet SA PO ONE ×2 (14:25→14:50)
[2025-02-23 15:24] VITALS: BP 121/83
--- NOTE | 2025-02-23 17:59 | NUR ---
NO ACUTE CHANGES THIS SHIFT. PT IS INTERMITTENLY CONFUSED, EASILY REDIRECTABLE, D/C CIWA ORDERS IN. PT IS EXTREMLY WEAK AND REQUIRES 1-2 ASSIST WITH FWW. UNABLE TO WALK MORE THAN A FEW STEPS BEFORE BODY GIVES IN. CALLS APPROPRIATELY. ADMIN LACTULOSE THROUGH OUT SHIFT WITH NO BM NOTED. ENCOURAGING PO INTAKE. PT APPEARS TO BE MORE ALERT THIS SHIFT THAN PREVIOUS SHIFTS.
[2025-02-23 19:56] VITALS: BP 132/80
[2025-02-24 03:45] VITALS: BP 104/56
--- NOTE | 2025-02-24 06:49 | NUR ---
Shift Summary AO x 2-3 to self, month/year, and partly situation. Is not aware that this is the hospital and is requesting that he be sent to [facility] afterward so he can get treatment for his alochol addiction. Patient is very soft spoken and sometimes mummbles his speech making it difficult to hear his clearly. Patient was not aware that he came here from [facility] because of severe dehydration and worsening DTs (delirium tremens). Been awake off and on tonight, woke up around 2am and finally agreeable to sit in a recliner. Pleasant. Denied pain. VSS. Pending d/c to SNF once mental clarity is optimized and patient is accepted to a facility.
[2025-02-24 07:09] VITALS: BP 123/66
[2025-02-24 16:14] VITALS: BP 111/67
--- NOTE | 2025-02-24 18:26 | NUR ---
SHIFT SUMMARY: PATIENT HAS SLEPT MOST OF THIS DAY. PATIENT ORIENTED TO ALL THIS MORNING BUT NOTED TO HAVE FLUCUATION LATER THIS DAY. PATIENT PLEASANT AND COOPERATIVE WITH CARE. PLAN OF CARE ONGOING AT THIS TIME. WILL CONTINUE TO MONITOR.
[2025-02-24 19:05] VITALS: BP 127/77
[2025-02-25 04:54] VITALS: BP 119/63
--- NOTE | 2025-02-25 05:05 | NUR ---
Shift Summary AOx3, mentation and verbal responses appear clearer compared to yesterday. At times, patient is still resistant to getting help. 1p FWW and GB to bathroom, unsafe to allow patient to be alone as he does not call despite being instructed to. Overestimates his abilities and almost fell backwards when pt refused gait belt and assistance returning to bed from using the bathroom. Patient did not pull the bathroom light when he was done like instructed to. Pleasant and cooperative with taking meds. Seems in better spirits to day.
[2025-02-25 07:41] VITALS: BP 135/69
[2025-02-25 10:00] LABS: Albumin, Blood 2.4 g/dL (3.4-5.0); Anion Gap 7 mmol/L (3-11); Blood Urea Nitrogen 7 mg/dL (8-24); CO2, Blood 32 mmol/L (21-32); Calcium, Blood 8.5 mg/dL (8.5-10.1); Chloride, Blood 103 mmol/L (98-108); Creatinine, Blood 0.64 mg/dL (0.60-1.20); Glucose, Blood 122 mg/dL (70-99); Magnesium, Blood 1.7 mg/dL (1.6-2.4); Phosphorus, Blood 3.1 mg/dL (2.5-4.9); Potassium, Blood 3.2 mmol/L (3.5-5.5); Sodium, Blood 139 mmol/L (136-145)
[2025-02-25] MEDS ORDERED: Potassium Chloride 10 Meq Tablet SA PO ONE (10:30)
[2025-02-25 15:07] VITALS: BP 134/85
[2025-02-25 19:12] VITALS: BP 142/80
--- NOTE | 2025-02-25 19:42 | NUR ---
NO ACUTE CHANGES THIS SHIFT. PT APPEARS TO BE CLEARING SLOWLY WITH EPISODES OF CONFUSION TO CURRENT SITUATION, PLACE, PLAN. REDIRECTABLE WITH SUPPORTIVE CONVERSATION. 1-2 PERSON ASSIST WITH FWW AND GAIT BELT. PT DOES FORGET LIMITATIONS AND ATTEMPT TO STAND WITH OUT ASSISTANCE. BED AND CHAIR ALARM USED THROUGHOUT SHIFT. PT HAD MINIMAL PO INTAKE DESPITE FREQUENT ENCOURAGEMENT. NO URINE OUTPUT THIS SHIFT, BLADDER SCAN SHOWS <[address] SCHWARZ NOTIFIED. PER MD ORDER CONTINUOUS IV FLUIDS AT 150 ML/HR. LACTULOSE ADMIN PER EMAR. 1 LARGE LIQUID STOOL THIS SHIFT. MD AWARE. PLAN TO D/C FRIDAY TO SNF.
[2025-02-26 04:12] VITALS: BP 139/87
--- NOTE | 2025-02-26 06:15 | NUR ---
SHIFT SUMMARY: Pt is admitted for ETOH and is a full code. Is alert and able to make needs known. ADLs have been 1p mostly SBA. denies pain or discomfort when asked. IV to left wrist is patent with dressing that is CDI. there were a couple times that he was confused but able to be redirected.
[2025-02-26 07:23] VITALS: BP 144/96
[2025-02-26 11:02] VITALS: BP 139/96
[2025-02-26] MEDS ORDERED: Potassium Chloride 10 Meq Tablet SA PO ONE (11:05)
--- NOTE | 2025-02-26 11:09 | NUR ---
THIS RN WAS IN A DIFFERENT ROOM WITH DOCTOR AND HEARD WALKER CRASH INTO WALL IN ROOM 344. THIS RN LOOKED OVER TO SEE PT ON THE FLOOR ON BACK WITH HEAD VERTICAL AGAINST WALL. THIS RN ARRIVED TO PT IMMEDIATELY, AFTER THIS RN ARRIVED, MD AND ALUMINUM POURER ARRIVED TO ASSESS PT CONDITION. PT DID NOT HAVE NONSKID SOCKS ON BUT DID HAVE THEM UNWRAPPED IN THE ROOM. ALSO NOTED BED ALARM WAS NOT SET OFF DURING INCIDENT. MD DID NOT SET ANY NEW ORDERS AFTER PERFORMING ASSESSMENT OF PT. THIS RN INFORMED ALUMINUM POURER TO COLLECT NEW VITALS FROM PT AFTER INCIDENT. ALUMINUM POURER WAS ON BREAK DURING INCIDENT AND RETURNED AFTER PT GOT BACK INTO BED WITHOUT COMPLICATION.
[2025-02-26 15:32] VITALS: BP 112/70
--- NOTE | 2025-02-26 18:06 | NUR ---
SHIFT SUMMARY PT AOX3/4, COOPERATIVE, ABLE TO MAKE NEEDS KNOWN. PT IS SBA ASSIST USING FWW TO BATHROOM FOR VOIDING AND TRANSFERS. ON ROOM AIR. LR RUNNING 75ML/HR CURRENTLY. TOLERATING MEDICATION. DID REFUSE 1700 DOSE LACTULOSE, EDUCATED ON MD RECOMMENDATION AND RISKS OF REFUSAL. PT DID NOT RECALL TAKING AM AND NOON DOSE OF LACTULOSE, BUT AFTER EDUCATION, PT STILL REFUSED. BED/CHAIR ALARM ACTIVE. PT DID HAVE A FALL TODAY, THAT IS CHARTED IN PREVIOUS NOTE. BED IN LOWEST POSITION, CALL LIGHT WITHIN REACH.
[2025-02-26 19:35] VITALS: BP 132/79
[2025-02-26 20:35] LABS: BASOPHILS ABSOLUTE AUTO 0.06 K/mm3 (0.00-0.23); BASOPHILS PERCENT AUTO 1 % (0-2); EOSINOPHILS ABSOLUTE AUTO 0.17 K/mm3 (0.00-0.68); EOSINOPHILS PERCENT AUTO 3 % (0-6); Hematocrit 42.9 % (37.0-53.0); Hemoglobin 14.2 g/dL (13.5-17.5); IMMATURE GRAN ABSOLUTE AUTO 0.03 K/mm3 (0.00-0.10); IMMATURE GRAN PERCENT AUTO 1 % (0-1); LYMPHOCYTES ABSOLUTE AUTO 1.15 K/mm3 (0.84-5.20); LYMPHOCYTES PERCENT AUTO 21 % (21-46); MONOCYTES ABSOLUTE AUTO 0.46 K/mm3 (0.16-1.47); MONOCYTES PERCENT AUTO 8 % (4-13); Mean Corpuscular HGB Conc 33.1 g/dL (31.5-36.5); Mean Corpuscular Volume 102 fL (80-100); NEUTROPHILS ABSOLUTE AUTO 3.68 K/mm3 (1.96-9.15); NEUTROPHILS PERCENT AUTO 66 % (41-73); NRBC ABSOLUTE 0.00 K/mm3 (0.00-0.02); NRBC Auto 0.0 /100 WBC (0.0-0.2); Platelet Count 184 K/mm3 (150-400); RDW Coefficient Variation 13.8 % (11.7-14.2); RDW Standard Deviation 52.7 fL (35.1-46.3)
[2025-02-26 20:38] LABS: pH Blood Venous 7.41 (7.34-7.37)
[2025-02-26 21:09] LABS: Alanine Aminotransfer (ALT/SGP 37.0 U/L (12-78); Albumin, Blood 2.5 g/dL (3.4-5.0); Albumin/Globulin Ratio 0.5 (0.8-1.8); Anion Gap 7.0 mmol/L (3-11); Aspartate Aminotrans (AST/SGOT 107.0 U/L (12-37); Bilirubin, Total 3.0 mg/dL (0.1-1.0); Blood Urea Nitrogen 7.0 mg/dL (8-24); CO2, Blood 31.0 mmol/L (21-32); Calcium, Blood 8.3 mg/dL (8.5-10.1); Chloride, Blood 101.0 mmol/L (98-108); Creatinine, Blood 0.75 mg/dL (0.60-1.20); Globulin, Blood 4.9 g/dL (2.2-4.0); Glucose, Blood 118.0 mg/dL (70-99); Magnesium, Blood 1.5 mg/dL (1.6-2.4); Phosphorus, Blood 2.4 mg/dL (2.5-4.9); Potassium, Blood 3.5 mmol/L (3.5-5.5); Sodium, Blood 135.0 mmol/L (136-145); Thyroid Stimulating Hormone 2.11 uIU/mL (0.360-4.800); Total Protein, Blood 7.4 g/dL (6.4-8.2)
[2025-02-27 05:23] VITALS: BP 107/55
[2025-02-27 05:49] LABS: BASOPHILS ABSOLUTE AUTO 0.05 K/mm3 (0.00-0.23); BASOPHILS PERCENT AUTO 1 % (0-2); EOSINOPHILS ABSOLUTE AUTO 0.20 K/mm3 (0.00-0.68); EOSINOPHILS PERCENT AUTO 4 % (0-6); Hematocrit 38.9 % (37.0-53.0); Hemoglobin 13.1 g/dL (13.5-17.5); IMMATURE GRAN ABSOLUTE AUTO 0.01 K/mm3 (0.00-0.10); IMMATURE GRAN PERCENT AUTO 0 % (0-1); LYMPHOCYTES ABSOLUTE AUTO 1.39 K/mm3 (0.84-5.20); LYMPHOCYTES PERCENT AUTO 24 % (21-46); MONOCYTES ABSOLUTE AUTO 0.42 K/mm3 (0.16-1.47); MONOCYTES PERCENT AUTO 7 % (4-13); Mean Corpuscular HGB Conc 33.7 g/dL (31.5-36.5); Mean Corpuscular Volume 102 fL (80-100); NEUTROPHILS ABSOLUTE AUTO 3.63 K/mm3 (1.96-9.15); NEUTROPHILS PERCENT AUTO 64 % (41-73); NRBC ABSOLUTE 0.00 K/mm3 (0.00-0.02); NRBC Auto 0.0 /100 WBC (0.0-0.2); Platelet Count 163 K/mm3 (150-400); RDW Coefficient Variation 13.8 % (11.7-14.2); RDW Standard Deviation 52.7 fL (35.1-46.3)
[2025-02-27 06:06] LABS: Albumin, Blood 2.1 g/dL (3.4-5.0); Anion Gap 6 mmol/L (3-11); Blood Urea Nitrogen 6 mg/dL (8-24); CO2, Blood 31 mmol/L (21-32); Calcium, Blood 8.2 mg/dL (8.5-10.1); Chloride, Blood 102 mmol/L (98-108); Creatinine, Blood 0.59 mg/dL (0.60-1.20); Glucose, Blood 98 mg/dL (70-99); Phosphorus, Blood 2.8 mg/dL (2.5-4.9); Potassium, Blood 3.2 mmol/L (3.5-5.5); Sodium, Blood 136 mmol/L (136-145)
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
[2025-02-27 07:27] VITALS: BP 112/71
[2025-02-27] MEDS ORDERED: Cosyntropin 0.25 MG / ML 1ML Vial IM ONE (08:40)
[2025-02-27] MEDS ORDERED: Mag Sulfate 1 GM/D5% 100ML 100 ML IV STA (08:49)
[2025-02-27] MEDS ORDERED: Potassium Phosphate Dibasic 10 MM in Dextrose 5% 250 ML IV STA (08:50)
[2025-02-27] MEDS ORDERED: Potassium Chloride 10 Meq Tablet SA PO SCH (09:00)
[2025-02-27] MEDS ORDERED: Cosyntropin 0.25 MG / ML 1ML Vial IV ONE (09:50)
--- NOTE | 2025-02-27 17:05 | NUR ---
SHIFT SUMMARY PT AOX2, COOPERATIVE, ABLE TO MAKE NEEDS KNOWN. BED/CHAIR ALARM ACTIVE, ON ROOM AIR. TOLERATING MEDICATION. PT SEEMS TO BE INCREASINGLY IMPULSIVE AND CONFUSED LATER IN SHIFT. EASY REDIRECTION THOUGH. BED IN LOWEST POSITION, CALL LIGHT WITHIN REACH.
[2025-02-27 19:35] VITALS: BP 150/95
[2025-02-28 03:41] VITALS: BP 134/92
--- NOTE | 2025-02-28 06:08 | NUR ---
SHIFT SUMMARY: Pt is admitted for ETOH and is a full code. Is alert and able to make needs known. ADLs have been 1p mostly SBA. denies pain or discomfort when asked. IV to left wrist is patent with dressing that is CDI.
[2025-02-28 07:21] VITALS: BP 117/71
--- NOTE | 2025-02-28 18:41 | NUR ---
SHIFT SUMMARY PT A&OX2-3. PT HAS CONFUSION. DR. HENAO D/C FLUIDS. PT GETTING ENULOSE QID. PT ADMITTED DUE TO ALCOHOL WITHDRAWL. PLAN IS POSSIBLE DISCHARGE TOMORROW. LOG BRANDER INVOLVED WITH DISCHARGE PLANNING. PT IMPULSIVE AT TIMES. PT EATS ADEQUATE. PT REPORTS NO GEN PAIN/SOB/CHEST PAIN. PT IN CHAIR FOR MOST OF DAY. CHAIR ALARM ON, PT DOESN'T ALWAYS USE CALL LIGHT AND UNSTEADY ON FEET.
[2025-02-28 20:17] VITALS: BP 147/92
--- NOTE | 2025-03-01 06:14 | NUR ---
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 CHEST RISE AND RESPIRATIONS NOTED. PT WILL GET UP WITHOUT THE USE OF CALL LIGHT. CHAIR AND BED ALARM IN USE FOR PT SAFETY. PT REMAINS CONFUSED ON WHERE HE IS, DATE/TIME, AND AT TIMES TRIES TO GET UP TO GO SEE HIS KIDS. HOWEVER, PT REDIRECTABLE. PT HAD ONE LOOSE BM THIS SHIFT. GOAL IS 3 W/ LACTULOSE ADMIN. BED RAILS UP X 2, BED IN LOWEST POSITION, BED WHEELS LOCKED, PERSONAL BELONGINGS AND CALL LIGHT WITHIN REACH FOR SAFETY. RN ALSO POSITIONED OUTSIDE ROOM AND ABLE TO HEAR PT CALL OUT WITH ANY NEEDS. PLAN IS POSSIBLE DISCHARGE TODAY TO SNF PENDING INSURANCE AUTHORIZATION.
[2025-03-01 07:16] VITALS: BP 115/64
[2025-03-01 10:12] LABS: Magnesium, Blood 1.8 mg/dL (1.6-2.4)
[2025-03-01 10:13] LABS: Albumin, Blood 2.4 g/dL (3.4-5.0); Anion Gap 10 mmol/L (3-11); Blood Urea Nitrogen 10 mg/dL (8-24); CO2, Blood 28 mmol/L (21-32); Calcium, Blood 8.1 mg/dL (8.5-10.1); Chloride, Blood 102 mmol/L (98-108); Creatinine, Blood 0.52 mg/dL (0.60-1.20); Glucose, Blood 125 mg/dL (70-99); Phosphorus, Blood 3.1 mg/dL (2.5-4.9); Potassium, Blood 4.6 mmol/L (3.5-5.5); Sodium, Blood 135 mmol/L (136-145)
[2025-03-01 16:29] VITALS: BP 124/77
--- NOTE | 2025-03-01 17:40 | NUR ---
SHIFT SUMMARY PT AOX2, IMPULSIVE AT TIMES. CA ON. NO ACUTE ISSUES THIS SHIFT. FAMILY AT THE BS TODAY. WAITING ON PLAN TO DC TO A SNF. REPOSITIONS SELF IN CHAIR. CALL LIGHT WITHIN REACH, BED LOCKED AND IN THE LOWEST POSITION. WILL REPORT TO ONCOMING NURSE.
[2025-03-01 19:02] VITALS: BP 131/77
[2025-03-02 03:20] VITALS: BP 133/93
--- NOTE | 2025-03-02 05:05 | NUR ---
SHIFT SUMMARY 45 YR M ADMITTED ON 02/11/25. FULL CODE. NO ACUTE CHANGES THIS SHIFT. PT HAS BEEN RESTLESS THIS SHIFT. HE STATED TO THIS NURSE THAT A CAB WAS COMING TO TAKE HIM TO COURT IN [place]. HE INSISTED ON GETTING DRESSED AND PACKING HIS BAG. HE WAS ABLE TO BE REDIRECTED OFF AND ON BUT HE APPEARS TO BE DETERMINED TO LEAVE. HE STATES THAT HE HAS TO GO TO COURT FOR HIS KIDS. HE IS UNSTEADY ON HIS FEET AND IS OFTEN RESISTANT TO ASSISSTANCE.
[2025-03-02 07:05] VITALS: BP 136/86
--- NOTE | 2025-03-02 11:34 | NUR ---
NOTE: THIS AM, PT APPEARED IRRITATED AND CONFUSED. HE CALLED THE [place] [employer] OFFICE TWICE, CLAIMING SOMEONE WAS ON A "HEAD GARZA" FOR HIM. HE WANTED THEM TO COME AND SECURE THE SCENE. HE WAS PARANOID, LOOKING OUT THE DOOR, CLAIMING THEY WERE OUTSIDE AND HERE TO GET HIM. THIS NURSE ATTEMPTED TO CONSOLE THE PT, STATING HE WAS IN A SAFE PLACE AND THAT THE UNIT WAS LOCKED. THIS DID NOT CALM HIM DOWN. HE WAS IMPUSLIVELY GETTING UP OUT OF THE CHAIR, STATING HE HAD TO GO AND GET AWAY. THE PT IS NOT STEADY ON HIS FEET AND OVER-ESTIMATES HIS ABILITIES. THE PROVIDER WAS NOTIFIED AND MEDICATIONS WERE ADMINISTERED PER THE EMAR. THE MEDICATIONS WERE EFFECTIVE AND THE PT RESPONDED WELL. HE WAS ABLE TO LATER APOLOGIZE AND RECOGNIZE THAT HE WAS CONFUSED AT THAT TIME. HE IS NOW RESTING COMFORTABLY IN BED AND TAKING A NAP.
--- NOTE | 2025-03-02 16:23 | NUR ---
SHIFT SUMMARY PT AOX2, IMPUSLIVE AT TIMES. UNSTEADY ON HIS FEET AND OVERESTIMATES HIS LIMITATIONS, 1 P ASSIST WITH THE FWW TO THE BR. SEE PREVIOUS NOTE ABOUT THIS MORNINGS EVENTS. SINCE THE EVENT, PT WOKE UP FROM A NAP AND HAS BEEN PLEASANT. STILL SLIGHTLY CONFUSED BUT ABLE TO REORIENT. CA ON, BA ON WHEN IN BED. LITTLE INTAKE TODAY. UPDATED HIS MOTHER ON THE PHONE. CALL LIGHT WITHIN REACH, BED LOCKED AND IN THE LOWEST POSITION. WILL REPORT TO ONCOMING NURSE.
[2025-03-02 16:42] VITALS: BP 125/77
[2025-03-02 20:28] VITALS: BP 116/67
[2025-03-03 05:13] VITALS: BP 130/85
[2025-03-03 05:28] LABS: Hematocrit 40.5 % (37.0-53.0); Hemoglobin 13.6 g/dL (13.5-17.5); Mean Corpuscular HGB Conc 33.6 g/dL (31.5-36.5); Mean Corpuscular Volume 102 fL (80-100); NRBC ABSOLUTE 0.00 K/mm3 (0.00-0.02); NRBC Auto 0.0 /100 WBC (0.0-0.2); Platelet Count 161 K/mm3 (150-400); RDW Coefficient Variation 13.8 % (11.7-14.2); RDW Standard Deviation 52.1 fL (35.1-46.3)
--- NOTE | 2025-03-03 05:54 | NUR ---
SHIFT SUMMARY PT DOZED OFF A COUPLE OF TIMES LAST NIGHT BUT FOR THE MOST PART HE WAS AWAKE ALL NIGHT. HE STATES THAT HE NEEDS TO LEAVE BECAUSE HE HAS THINGS TO DO. HE CAN BE REDIRECTED, BUT IT IS NOT ALWAYS EASY TO DO. PT EXHIBITED NO AGITATION THIS SHIFT. HE STATED THAT HE IS SAD BECAUSE HE KNOWS HE IS GONNA . ATIVAN AND ZYPREXA GIVEN AT APPROX 0600 TO TRY TO FACILITATE SLEEP.
[2025-03-03 06:22] LABS: Alanine Aminotransfer (ALT/SGP 41.0 U/L (12-78); Albumin, Blood 2.4 g/dL (3.4-5.0); Albumin/Globulin Ratio 0.5 (0.8-1.8); Anion Gap 8.0 mmol/L (3-11); Aspartate Aminotrans (AST/SGOT 90.0 U/L (12-37); Bilirubin, Total 2.8 mg/dL (0.1-1.0); Blood Urea Nitrogen 10.0 mg/dL (8-24); CO2, Blood 29.0 mmol/L (21-32); Calcium, Blood 8.4 mg/dL (8.5-10.1); Chloride, Blood 102.0 mmol/L (98-108); Creatinine, Blood 0.65 mg/dL (0.60-1.20); Globulin, Blood 4.5 g/dL (2.2-4.0); Glucose, Blood 112.0 mg/dL (70-99); Magnesium, Blood 1.8 mg/dL (1.6-2.4); Potassium, Blood 3.5 mmol/L (3.5-5.5); Sodium, Blood 135.0 mmol/L (136-145); Total Protein, Blood 6.9 g/dL (6.4-8.2)
[2025-03-03 07:13] VITALS: BP 128/76
[2025-03-03 16:11] VITALS: BP 125/69
--- NOTE | 2025-03-03 18:04 | NUR ---
SHIFT SUMMARY PT AOX2, MENTATION WAXES AND WANES. SOMEWHAT CONFUSED UPON WAKING, NAPPING OFF AND ON THIS SHIFT. NO ACUTE COMPLAINTS. PT WALKED THE [place], UP IN CHAIR, TOOK A SHOWER. PLAN IS FOR HIM TO DC TOMORROW BACK TO HIS PARENTS HOUSE. HE IS AWARE. CAN BE IMPULSIVE AT TIMES, CA/BA ON. CALL LIGHT WITHIN REACH, BED LOCKED AND IN THE LOWEST POSITION. WILL REPORT TO ONCOMING NURSE.
[2025-03-03 20:54] VITALS: BP 142/84
[2025-03-04 05:40] VITALS: BP 135/81
--- NOTE | 2025-03-04 06:13 | NUR ---
SHIFT SUMMARY PT ADMITTED FOR . PT IS ALERT AND ORIENTED TIMES 3. PT HAS l WRIST IV. PT DOES NOT REQUIRE SUPPLEMENTAL O2 . PT IS STAND BY ASSIST TO TOILET AND ABLE TO WALK FROM ONE END OF [place] TO THE OTHER WITH STAND BY ASSIST. PT WAS COOPERATIVE WITH CARE AND HAD POSITIVE CONVERSATIONS ABOUT GOING TO SCHOOL AT [employer] AND SPORTS. BED IN LOW POSITION, CALL LIGHT WITHIN REACH, RAILS TIMES 2.
[2025-03-04 06:19] LABS: Anion Gap 9.0 mmol/L (3-11); Blood Urea Nitrogen 8.0 mg/dL (8-24); CO2, Blood 29.0 mmol/L (21-32); Calcium, Blood 8.5 mg/dL (8.5-10.1); Chloride, Blood 102.0 mmol/L (98-108); Creatinine, Blood 0.6 mg/dL (0.60-1.20); Glucose, Blood 107.0 mg/dL (70-99); Potassium, Blood 3.7 mmol/L (3.5-5.5); Sodium, Blood 136.0 mmol/L (136-145)
[2025-03-04 07:30] VITALS: BP 107/58
[2025-03-04] MEDS ORDERED: HYDCOR10 PO (10:06)
[2025-03-04] MEDS ORDERED: HYDCOR20 PO (10:06)
[2025-03-04] MEDS ORDERED: CARV6.25 PO (10:06)
[2025-03-04] MEDS ORDERED: LACT10SY PO (10:07)
[2025-03-04] MEDS ORDERED: POTCHL20ER PO (10:07)
[2025-03-04] MEDS ORDERED: OLAN5 PO (10:07)
[2025-03-04] MEDS ORDERED: MULVITA PO (10:07)
--- NOTE | 2025-03-04 13:15 | NUR ---
D/C NOTE PT D/C HOME W/ PARENTS AT 1245. PT AND PT'SA FAMILY PROVIDED W/ VERBAL AND WRITTEN INSTRUCTIONS AND REPORTED UNDERSTANDING. PT A&OX3, VSS, AMB W/ ASSIST, TOLERATING PO, VOIDING, AND DENIED PAIN. BELONGINGS WERE RETURNED. HOME MEDS RETURNED. PT ESCOURTED OUT VIA W/C BY MARAT TIPTON.
== END 2025-03-04 13:10 | disposition home or self-care (01) | DRG 896 ==
LOC: ER 01:22 → MEDS 05:52 → ICUE 05:52 → MEDS 02-15 11:36
PROVIDERS: Family Medicine; Internal Medicine; Student in an Organized Health Care Education/Training Program; ADMIT Student in an Organized Health Care Education/Training Program
PROC: HZ2ZZZZ Detoxification Services for Substance Abuse Treatment (ICD-10-PCS; principal; 2025-02-11)
DX: F10.231 Alcohol dependence with withdrawal delirium (principal); G92.8 Other toxic encephalopathy; R44.0 Auditory hallucinations; K76.6 Portal hypertension; E87.1 Hypo-osmolality and hyponatremia; E72.20 Disorder of urea cycle metabolism, unspecified; E27.40 Unspecified adrenocortical insufficiency; Z66 Do not resuscitate; F10.221 Alcohol dependence with intoxication delirium; D69.6 Thrombocytopenia, unspecified; E83.42 Hypomagnesemia; R45.1 Restlessness and agitation; R45.6 Violent behavior; R44.1 Visual hallucinations; K76.82 Hepatic encephalopathy; K70.30 Alcoholic cirrhosis of liver without ascites; K76.0 Fatty (change of) liver, not elsewhere classified; R74.01 Elevation of levels of liver transaminase levels; Y90.0 Blood alcohol level of less than 20 mg/100 ml; R53.1 Weakness; I10 Essential (primary) hypertension; E87.6 Hypokalemia; W19.XXXA Unspecified fall, initial encounter; Y92.239 Unspecified place in hospital as the place of occurrence of the external cause
CPT/HCPCS: 36415; 51701; 70450; 74177; 76705; 80048; 80053; 80069; 80074; 80320; 80400; 82140; 82247; 82248; 82330; 82533; 82803; 82947; 83605; 83735; 84100; 84439; 84443; 84481; 85025; 85027; 85610; 85730; 94760; 96374-59; 96375; 97110; 97112; 97116; 97161; 97530; 99285-25; A9270; C1751; G0480; J0834; J1650; J2560; J3360; J3411; J3475; J3480; J7030; J7050; J7060; J7120; Q9967